=== PATIENT | female | born 1990 | race Caucasian/White ===

== ENCOUNTER → 2017-11-22 | Outpatient (CLI) | payer OTHER ==
--- NOTE | 2017-11-23 11:06 | US ---
EXAMINATION TYPE: US pelvic complete DATE OF EXAM: 11/22/2017 COMPARISON: NONE CLINICAL HISTORY: R10.2 Pelvis and perineal pain. recent painful menses and of short duration; prior Molar with D&C; TECHNIQUE: Transabdominal (TA). Transabdominal sonographic images of the pelvis were acquired. Date of LMP: 11/12/2017 EXAM MEASUREMENTS: Uterus: 6.5 x 5.3 x 3.9 cm Endometrial Stripe: 0.6 cm Right Ovary: 3.4 x 2.6 x 2.5 cm Left Ovary: 2.6 x 2.2 x 2.0 cm 1. Uterus: Anteverted 2. Endometrium: 2 hyperechoic foci in upper endometrium at periphery of endometrial and myometrial b order with larger = 0.3 x 0.3 x 0.2cm and may be related to prior molar history with D&C.; endometrial thickness is wnl for Day 11 LMP. 3. Right Ovary: follicular cyst = 1.8 x 1.7 x 1.7cm 4. Left Ovary: several small cysts with largest = 1.2 x 0.7 x 0.9cm Spectral, color and waveform doppler imaging shows good arterial and venous flow within the ovaries ; there is no evidence for ovarian torsion. 5. Bilateral Adnexa: wnl 6. Posterior cul-de-sac: small amount of free fluid = 1.1 x 1.0 x 1.7cm IMPRESSION: 1. Nonspecific hyperechoic endometrial foci. Consider direct visualization. 2. Bilateral ovarian cysts are nonspecific. 3. Free fluid.
== END | disposition home or self-care (01) ==
LOC: RADUSWWP 15:32
PROVIDERS: ATTEND Physician Assistant
DX: N83.202 Unspecified ovarian cyst, left side (principal); N83.201 Unspecified ovarian cyst, right side
CPT/HCPCS: 76856

== ENCOUNTER 2019-10-11 13:36 | Emergency (ER) | payer OTHER ==
[2019-10-11 13:48] VITALS: BP 111/72; RESP 20; TEMP 98
[2019-10-11] MEDS ORDERED: predniSONE 20 MG TAB PO STA (14:10)
[2019-10-11] MEDS ORDERED: FAMOTIDINE 20 MG TAB PO STA (14:10)
[2019-10-11] MEDS ORDERED: IPRATROPIUM-ALBUTEROL 3 ML NEB INHALATION STA (14:10)
--- NOTE | 2019-10-11 14:17 | ED ---
General Adult HPI - General Chief complaint: Upper Respiratory Infection Stated complaint: fever, SOB, cough Time Seen by Provider: 10/11/19 13:48 Source: patient Mode of arrival: ambulatory Limitations: no limitations - History of Present Illness Initial comments: Patient is a 29-year-old female with history of asthma and anxiety presenting to the emergency department a chief complaint of cough. Patient reports she has developed increased cough that is not short productive with yellow sputum production over the last 3 days. Patient does report some shortness of breath after she woke up this morning. Patient states dyspnea on exertion but denies any chest and back or abdominal pain. Does report a sore throat and occasional otalgia with past that rhinorrhea. States she use her albuterol inhaler several times today with minimal improvement of symptoms. Patient states she is a never day smoker. 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 - Related Data Previous Rx's Medication Instructions Recorded Albuterol Inhaler [Ventolin Hfa 1 - 2 puff INHALATION RT-Q6H PRN 10/11/19 Inhaler] #1 inhaler Albuterol Nebulized [Ventolin 2.5 mg INHALATION Q4H PRN #25 nebu 10/11/19 Nebulized] predniSONE 50 mg PO DAILY #5 tab 10/11/19 Allergies Allergy/AdvReac Type Severity Reaction Status Date / Time phenobarbital Allergy Unknown Verified 10/11/19 13:48 ibuprofen AdvReac Nausea & Verified 10/11/19 13:48 Vomiting Review of Systems ROS Statement: Those systems with pertinent positive or pertinent negative responses have been documented in the HPI. ROS Other: All systems not noted in ROS Statement are negative. Past Medical History Additional Past Medical History / Comment(s): caervica ca History of Any Multi-Drug Resistant Organisms: None Reported Past Surgical History: Adenoidectomy, Ear Surgery, Tonsillectomy Additional Past Surgical History / Comment(s): D&C Past Psychological History: Anxiety, Depression Smoking Status: Current every day smoker Past Alcohol Use History: None Reported Past Drug Use History: None Reported General Exam Limitations: no limitations General appearance: alert, in no apparent distress Head exam: Present: atraumatic, normocephalic, normal inspection Eye exam: Present: normal appearance, PERRL, EOMI Pupils: Present: normal accommodation ENT exam: Present: normal exam, normal oropharynx (Uvula midline. No tonsillar erythema, exudates or enlargement.), mucous membranes moist, TM's normal bilaterally, normal external ear exam Neck exam: Present: normal inspection, full ROM. Absent: lymphadenopathy Respiratory exam: Present: normal lung sounds bilaterally. Absent: respiratory distress, wheezes, decreased breath sounds Cardiovascular Exam: Present: regular rate, normal rhythm, normal heart sounds Extremities exam: Present: normal inspection, full ROM Back exam: Present: normal inspection, full ROM Neurological exam: Present: alert, oriented X3 Psychiatric exam: Present: normal affect, normal mood Skin exam: Present: warm, dry, intact, normal color Course Vital Signs 10/11/19 10/11/19 10/11/19 13:45 14:44 14:55 Temperature 98 F Pulse Rate 131 H 120 H 112 H Respiratory 20 Rate Blood Pressure 111/72 O2 Sat by Pulse 99 Oximetry Medical Decision Making - Medical Decision Making Patient is a 29-year-old female with history of asthma and anxiety presenting to the emergency room with a chief complaint of cough. On initial evaluation patient appears to be anxious and is concerned for coronavirus because she works in a hotel with international guests. On physical examination, patient is not in any respiratory distress or wheezing but she does report shortness of breath. Chest x-ray is unremarkable. Patient is a smoker with exercise-induced asthma. Patient was given a breathing treatment here and prednisone. On reevaluation patient reports her symptoms have resolved. I had a long (over 3 minutes) and thorough discussion with patient regarding the side effects of smoking and having risk factors such as asthma. I suspect patient has mild asthma exacerbation. Patient is slightly tachycardic due to her anxiety. Patient given a prescription of albuterol and prednisone. Return parameters were thoroughly discussed with patient was understanding and agreeable. Case discussed with physician. Disposition Clinical Impression: Asthma exacerbation, mild Disposition: HOME SELF-CARE Condition: Stable Instructions (If sedation given, give patient instructions): Asthma (DC) Additional Instructions: Take prescribed medication as directed. Stop smoking. Return to emergency department if symptoms worsen. Follow up with primary care. Prescriptions: predniSONE 50 mg PO DAILY #5 tab Albuterol Inhaler [Ventolin Hfa Inhaler] 1 - 2 puff INHALATION RT-Q6H PRN #1 inhaler PRN Reason: Cough Albuterol Nebulized [Ventolin Nebulized] 2.5 mg INHALATION Q4H PRN #25 nebu PRN Reason: difficulty in breathing Is patient prescribed a controlled substance at d/c from ED?: No Referrals: Luc Perez DO [Primary Care Provider] - 1-2 days Time of Disposition: 15:26
--- NOTE | 2019-10-11 14:43 | XR ---
EXAMINATION TYPE: XR chest 2V DATE OF EXAM: 10/11/2019 COMPARISON: NONE HISTORY: Cough TECHNIQUE: FINDINGS: Heart and mediastinum are normal. Lungs are clear. Diaphragm is normal. Bony thorax appears normal. IMPRESSION: Normal chest
[2019-10-11 15:04] VITALS: PULSE 112
== END 2019-10-11 15:43 | disposition home or self-care (01) ==
LOC: EC 13:36
DX: J45.901 Unspecified asthma with (acute) exacerbation (principal); F41.9 Anxiety disorder, unspecified; H92.09 Otalgia, unspecified ear; F17.200 Nicotine dependence, unspecified, uncomplicated; Z88.6 Allergy status to analgesic agent; Z88.8 Allergy status to other drugs, medicaments and biological substances; Z85.41 Personal history of malignant neoplasm of cervix uteri; Z90.89 Acquired absence of other organs; Z20.828 Contact with and (suspected) exposure to other viral communicable diseases; Z98.890 Other specified postprocedural states
CPT/HCPCS: 94640; 71046; 99285; 99406; J7512

== ENCOUNTER → 2021-06-29 | Outpatient (CLI) | payer OTHER ==
[2021-06-29 14:34] LABS: HCG,Qualitative Serum Not Detected
[2021-06-29 14:40] LABS: ALT 13 U/L (4-34); AST 22 U/L (14-36); African American GFR (CKD) >90 (>60 ml/min/1.73 sqM); Albumin 3.9 g/dL (3.5-5.0); Albumin/Globulin Ratio 1.3; Alkaline Phosphatase 44 U/L (38-126); Anion Gap 5 mmol/L; Blood Urea Nitrogen 9 mg/dL (7-17); Carbon Dioxide 26 mmol/L (22-30); Chloride 105 mmol/L (98-107); Globulin 2.9 g/dL; Glucose 75 mg/dL (74-99); Non-African American GFR(CKD) >90 (>60 ml/min/1.73 sqM); Potassium 4.1 mmol/L (3.5-5.1); Sodium 136 mmol/L (137-145); Total Bilirubin 0.2 mg/dL (0.2-1.3); Total Protein 6.8 g/dL (6.3-8.2)
[2021-06-29 19:04] LABS: Basophils # (A) 0.06 X 10*3/uL (0.00-0.10); Basophils % (A) 0.7 %; Eosinophils # (A) 0.11 X 10*3/uL (0.04-0.35); Eosinophils % (A) 1.2 %; HCT 40.7 % (37.2-46.3); HGB 13.2 g/dL (12.0-15.0); Lymphocytes # (A) 2.54 X 10*3/uL (0.90-5.00); Lymphocytes % (A) 28.4 %; MCH 30.6 pg (27.0-32.0); MCHC 32.4 g/dL (32.0-37.0); MCV 94.4 fL (80.0-97.0); Mean Platelet Volume 10.2 fL (9.5-12.2); Monocytes # (A) 0.68 X 10*3/uL (0.20-1.00); Monocytes % (A) 7.6 %; Neutrophils # (A) 5.53 X 10*3/uL (1.80-7.70); Neutrophils % (A) 61.8 %; Platelet Count 228 X 10*3/uL (140-440); RBC 4.31 X 10*6/uL (4.10-5.20); WBC 8.95 X 10*3/uL (4.50-10.00)
[2021-06-30 05:02] LABS: Cancer Antigen 125 8.4 U/mL (0.0-30.1)
== END | disposition home or self-care (01) ==
LOC: LABWHC1 13:25
PROVIDERS: ATTEND Obstetrics & Gynecology Gynecologic Oncology
DX: R10.9 Unspecified abdominal pain (principal)
CPT/HCPCS: 36415; 80053; 82378; 84703; 85025; 86304